=== PATIENT | male | born 1990 | race American Indian/Alaskan Native ===

== ENCOUNTER 2020-08-25 18:09 | Emergency (ER) | payer SELFPAY ==
--- NOTE | 2020-08-25 18:21 | Event Note ---
ED Screening Note ED Screening Note: 30 yo bipolar schizo male comes to er p not drinking for 48 hours feeling funny. Temors on arrival VS ok no cp no sob no sz states if he doesnt take his psych meds he hears voices took meds today lives with family he drinks etoh daily; and has for 5 years This initial assessment/diagnostic orders/clinical plan/treatment(s) is/are subject to change based on patients health status, clinical progression and re- assessment by fellow clinical providers in the ED. Further treatment and workup at subsequent clinical providers discretion. Patient/guardian urged not to elope from the ED as their condition may be serious if not clinically assessed and managed. Initial orders include: javy BRUNER
[2020-08-25 19:09] LABS: Amphetamine Screen,Urine Negative; Benzodiazepines Screen,Urine Negative; Cocaine Screen,Urine Negative; Methadone Screen,Urine Negative; Opiate Screen,Urine Negative
[2020-08-25 19:11] LABS: Hemoglobin 14.5 gm/dl (11.8-15.2); Mean Corpuscular HGB Conc 34 % (32-34); Mean Corpuscular Volume 88 fl (84-94); Platelet Count 230 K/mm3 (140-440); Red Blood Count 4.89 M/mm3 (3.65-5.03)
[2020-08-25 19:25] LABS: Cannabinoid Screen,Urine Positive
[2020-08-25 19:26] LABS: Alanine Aminotransferase 14 units/L (7-56); Albumin 4.8 g/dL (3.9-5); BUN/Creatinine Ratio 14; Blood Urea Nitrogen 14 mg/dL (9-20); Calcium 9.6 mg/dL (8.4-10.2); Hemolysis Index 10
[2020-08-25 19:29] LABS: Bilirubin,Urine MOD (Negative); Blood,Urine NEG (Negative); Color,Urine Yellow (Yellow); Mucus,Urine 2+ /HPF; WBC,Urine < 1.0 /HPF (0.0-6.0)
[2020-08-25] MEDS ORDERED: LIDOCAINE VISCOUS 2% 15 ML ORAL LIQD PO ONE (20:02)
[2020-08-25] MEDS ORDERED: ALUM-MAG HYDROXIDE-SIMETHICONE 200-200-20MG/5ML ORAL LIQD 30 ML PO ONE (20:02)
--- NOTE | 2020-08-25 20:08 | Emergency Department Report ---
ED Abdominal Pain HPI - General Chief Complaint: Medical Clearance Stated Complaint: WANTS BLOOD WORK Time Seen by Provider: 08/25/20 18:17 Source: patient Mode of arrival: Ambulatory Limitations: No Limitations - History of Present Illness Initial Comments: 30-year-old male with history of bipolar disorder, schizophrenia, acid reflux, presents to ED with abdominal pain. Patient reports onset of abdominal pain 2 days ago. Patient reports it feels like his acid reflux. Patient states he normally drinks daily but he stopped x1 day. Patient reports since stopping, his abdominal pain has improved. He denies any nausea, vomiting. Patient states he just wanted to come and get some blood work checked to make sure he was okay. MD Complaint: abdominal pain -: days(s) (2) Location: epigastric Radiation: none Migration to: no migration Severity: mild Quality: burning Consistency: intermittent Improves With: other (Not drinking alcohol) Worsens With: other (Drinking alcohol) Associated Symptoms: denies: nausea, vomiting, fever, hematemesis, hematochezia, melena - Related Data Previous Rx's Medication Instructions Recorded Last Taken Type Pantoprazole [Protonix] 40 mg PO QDAY #30 tablet 08/25/20 Unknown Rx Allergies Allergy/AdvReac Type Severity Reaction Status Date / Time No Known Allergies Allergy Verified 08/25/20 18:12 ED Review of Systems ROS: Stated complaint: WANTS BLOOD WORK Other details as noted in HPI Comment: All other systems reviewed and negative Gastrointestinal: abdominal pain. denies: nausea, vomiting, hematemesis, hematochezia ED Past Medical Hx - Past Medical History Hx Psychiatric Treatment: Yes (BIPOLAR /SCHIZOPHERNIA) - Social History Smoking Status: Never Smoker Substance Use Type: Alcohol - Medications Home Medications: Home Medications Medication Instructions Recorded Confirmed Last Taken Type Pantoprazole [Protonix] 40 mg PO QDAY #30 tablet 08/25/20 Unknown Rx ED Physical Exam - General Limitations: No Limitations General appearance: alert, in no apparent distress - Head Head exam: Present: atraumatic, normocephalic - Eye Eye exam: Present: normal appearance, EOMI - ENT ENT exam: Present: mucous membranes moist - Neck Neck exam: Present: normal inspection - Respiratory Respiratory exam: Present: normal lung sounds bilaterally. Absent: respiratory distress - Cardiovascular Cardiovascular Exam: Present: regular rate, normal rhythm - GI/Abdominal GI/Abdominal exam: Present: soft. Absent: distended, tenderness - Extremities Exam Extremities exam: Present: normal inspection - Neurological Exam Neurological exam: Present: alert, oriented X3 - Psychiatric Psychiatric exam: Present: normal affect, normal mood - Skin Skin exam: Present: warm, dry, intact, normal color ED Course Vital Signs 08/25/20 08/25/20 18:15 20:30 Temperature 97.9 F 98.1 F Pulse Rate 78 71 Respiratory 20 16 Rate Blood Pressure 118/76 115/62 [Right] O2 Sat by Pulse 98 99 Oximetry ED Medical Decision Making - Lab Data Result diagrams: 08/25/20 18:41 08/25/20 18:41 - Medical Decision Making 30-year-old male with history of bipolar disorder, schizophrenia, acid reflux, presents to ED with abdominal pain. Patient reports onset of abdominal pain 2 days ago. Patient reports it feels like his acid reflux. Patient states he normally drinks daily but he stopped x1 day. Patient reports since stopping, his abdominal pain has improved. He denies any nausea, vomiting. Patient states he just wanted to come and get some blood work checked to make sure he was okay. Labs are unremarkable. Vital signs are stable. Patient given GI cocktail here in the ED and is feeling much better. Patient will be discharged at this time with prescription for Protonix. He has been advised to reduce his alcohol intake. Outpatient follow-up advised. Return precautions given. - Differential Diagnosis Gastritis, pancreatitis, anemia Critical care attestation.: If time is entered above; I have spent that time in minutes in the direct care of this critically ill patient, excluding procedure time. ED Disposition Clinical Impression: Gastritis Disposition: DC-01 TO HOME OR SELFCARE Is pt being admited?: No Condition: Stable Instructions: Gastritis, Adult, [id number], Heartburn, [id number] Prescriptions: Pantoprazole [Protonix] 40 mg PO QDAY #30 tablet Referrals: CARMELLA BRAND MD [Primary Care Provider] - 3-5 Days [facility] [Provider Group] - 3-5 Days [facility] [Provider Group] - 3-5 Days Time of Disposition: 20:08
[2020-08-25 20:32] VITALS: BP 115/62
[2020-08-25 20:40] LABS: Ictotest,Urine Positive (Negative)
[2020-08-25 22:49] LABS: RBC Morphology Normal; Total Cells Counted 100
[2020-08-25 22:50] LABS: Large Platelets Rare; Platelet Estimate Consistent w Auto
== END 2020-08-25 20:36 | disposition home or self-care (01) ==
LOC: ED 18:09
DX: K29.70 Gastritis, unspecified, without bleeding (principal); F25.0 Schizoaffective disorder, bipolar type; Z79.899 Other long term (current) drug therapy
CPT/HCPCS: 36415; 80053; 80307; 80320; 81001; 82550; 83690; 85007; 85025; 99283; G0480

== ENCOUNTER 2020-09-07 20:43 | Emergency (ER) | payer SELFPAY ==
[2020-09-07 21:04] VITALS: BP 105/64
[2020-09-07] MEDS ORDERED: cephALEXin 500 MG CAP PO ONE (22:19)
[2020-09-07] MEDS ORDERED: traMADol 50 MG TAB PO ONE (22:19)
[2020-09-07] MEDS ORDERED: IBUPROFEN 600 MG TAB PO ONE (22:19)
--- NOTE | 2020-09-07 22:28 | Emergency Department Report ---
ED Fall HPI - General Chief Complaint: Extremity Injury, Lower Stated Complaint: FALL/BODY PAIN Source: patient Mode of arrival: Ambulatory - History of Present Illness Initial Comments: Patient is a 30-year-old -[place] male with a history of schizophrenia, bipolar disorder, anxiety and depression who presents to the ED with complaint of acute onset persistent left hip pain, left thigh pain and right hand and finger pains due to abrasions after he tripped on a manhole and fell down hitting his right hand and left hip about 1 week ago. Patient states that the pain has been persistent despite taking [id number] pain medications, and confirmed that he has been taking Tylenol 600 mg for pain. Patient states that he is unsure of his tetanus vaccination status. Patient denies head or neck injuries, loss of consciousness, numbness and tingling or weakness of upper and lower extremities bilaterally, low back pain, chest pain, shortness of breath, abdominal pain, testicular pain, hematuria, change in vision, loss of consciousness, seizures, syncope change in vision or neck pain. MD Complaint: fall, other (Left hip pain, right hand pain and finger swelling with multiple abrasions) -: Sudden, days(s) (6) Fall From: standing, other (tripped and fell on an open Man-hole) When Fall Occurred: # days [employer]PER[employer] (6) Fall Witnessed: yes, by bystander Place Fall Occurred: street Loss of Consciousness: none Prolonged Down Time?: no Symptoms Prior to Fall: none Location: other (Right hand and left hip and thigh pain) Location - Extremities: Left: Thigh (left hip and thigh pains), Right: Hand (painful swollen ulcerated abrasion wounds) Severity: severe Severity scale (0 -10): 7 Quality: sharp, aching Context: tripped/slipped Associated Symptoms: denies. denies: numbness, weakness, chest paint, shortness of breath, abdominal pain, hematuria, lightheaded, vertigo, confusion, other - Related Data Previous Rx's Medication Instructions Recorded Last Taken Type Pantoprazole [Protonix] 40 mg PO QDAY #30 tablet 08/25/20 Unknown Rx Acetaminophen/Codeine [Tylenol 1 tab PO Q6H PRN #10 tab 09/07/20 Unknown Rx /Codeine # 3 tab] Ibuprofen [Motrin] 600 mg PO Q8H PRN #24 tablet 09/07/20 Unknown Rx Sulfamethoxazole/Trimethoprim 1 each PO Q12H #20 tablet 09/07/20 Unknown Rx [Bactrim DS TAB] Allergies Allergy/AdvReac Type Severity Reaction Status Date / Time No Known Allergies Allergy Verified 08/25/20 18:12 ED Review of Systems ROS: Stated complaint: FALL/BODY PAIN Other details as noted in HPI Constitutional: denies: chills, fever Eyes: denies: eye pain, eye discharge, vision change ENT: denies: ear pain, throat pain, dental pain Respiratory: denies: cough, shortness of breath, wheezing Cardiovascular: denies: chest pain, palpitations Endocrine: no symptoms reported Gastrointestinal: denies: abdominal pain, nausea, vomiting, diarrhea, constipation, hematemesis, melena Genitourinary: denies: urgency, dysuria Musculoskeletal: arthralgia (left hip and thigh pain; right hand and finger lacerations). denies: joint swelling, myalgia, other Skin: other (Swollen painful abrasion wounds on dorsal right hand and fingers; legft hip and thigh pain). denies: rash, lesions Neurological: denies: headache, weakness, paresthesias Psychiatric: denies: anxiety, depression Hematological/Lymphatic: denies: easy bleeding, easy bruising ED Past Medical Hx - Past Medical History Hx Psychiatric Treatment: Yes (BIPOLAR /SCHIZOPHERNIA) Additional medical history: GERD - Social History Smoking Status: Never Smoker - Medications Home Medications: Home Medications Medication Instructions Recorded Confirmed Last Taken Type Pantoprazole [Protonix] 40 mg PO QDAY #30 tablet 08/25/20 Unknown Rx Acetaminophen/Codeine [Tylenol 1 tab PO Q6H PRN #10 tab 09/07/20 Unknown Rx /Codeine # 3 tab] Ibuprofen [Motrin] 600 mg PO Q8H PRN #24 tablet 09/07/20 Unknown Rx Sulfamethoxazole/Trimethoprim 1 each PO Q12H #20 tablet 09/07/20 Unknown Rx [Bactrim DS TAB] ED Physical Exam - General Limitations: No Limitations General appearance: alert, in no apparent distress - Head Head exam: Present: atraumatic, normocephalic, normal inspection - Eye Eye exam: Present: normal appearance, PERRL, EOMI - ENT ENT exam: Present: normal exam, normal orophraynx, mucous membranes moist, TM's normal bilaterally, normal external ear exam - Neck Neck exam: Present: normal inspection, full ROM. Absent: tenderness, meningismus - Respiratory Respiratory exam: Present: normal lung sounds bilaterally. Absent: respiratory distress, wheezes, rales, rhonchi, chest wall tenderness, accessory muscle use, prolonged expiratory - Cardiovascular Cardiovascular Exam: Present: regular rate, normal rhythm, normal heart sounds. Absent: systolic murmur, diastolic murmur, rubs, gallop - GI/Abdominal GI/Abdominal exam: Present: soft, normal bowel sounds. Absent: distended, tenderness, guarding, rebound, hyperactive bowel sounds, organomegaly - Extremities Exam Extremities exam: Present: normal inspection, tenderness (Palpable right hand and finger tenderness due to ulcerated open abrasion wounds with swelling; palpable left hip tenderness with multiple abrasion to the left lateral thigh), normal capillary refill, joint swelling. Absent: pedal edema - Back Exam Back exam: Present: normal inspection, full ROM. Absent: tenderness, CVA tenderness (R), CVA tenderness (L), muscle spasm, paraspinal tenderness, vertebral tenderness - Neurological Exam Neurological exam: Present: alert, oriented X3, CN II-XII intact, normal gait, reflexes normal - Psychiatric Psychiatric exam: Present: normal affect, normal mood - Skin Skin exam: Present: warm, dry, intact, normal color. Absent: rash ED Course Vital Signs 09/07/20 21:02 Temperature 97.5 F L Pulse Rate 95 H Respiratory 16 Rate Blood Pressure 105/64 O2 Sat by Pulse 96 Oximetry ED Medical Decision Making - Medical Decision Making This is a 30-year-old -[place] male with a history of schizophrenia, bipolar disorder, anxiety and depression who presents to the ED with complaint of acute onset persistent left hip pain, left thigh pain and right hand and finger pains due to abrasions after he tripped on a manhole and fell down hitting his right hand and left hip about 1 week ago. Patient states that the pain has been persistent despite taking [id number] pain medications, and confirmed that he has been taking Tylenol 600 mg for pain. Patient states that he is unsure of his tetanus vaccination status. In the ED, patient is alert and oriented x3 and is not in any distress. Patient was treated in the ED for pain. There are multiple abrasions on the dorsal right ring and middle fingers were cleaned thoroughly and dressed appropriately. Patient also received booster tetanus vaccinations in the ED. On reevaluation, patient's pain is well controlled medications. - Differential Diagnosis Abrasions; hand contusion; hip contusion; muscle strain; muscle spasm Critical care attestation.: If time is entered above; I have spent that time in minutes in the direct care of this critically ill patient, excluding procedure time. ED Disposition Clinical Impression: Contusion of right hand including fingers Qualifiers: Encounter type: initial encounter Qualified Code(s): S60.221A - Contusion of right hand, initial encounter Infected abrasion of right hand Qualifiers: Encounter type: initial encounter Qualified Code(s): S60.511A - Abrasion of right hand, initial encounter Contusion of left hip and thigh Qualifiers: Encounter type: initial encounter Qualified Code(s): S70.02XA - Contusion of left hip, initial encounter Disposition: DC- TO HOME OR SELFCARE Is pt being admited?: No Does the pt Need Aspirin: No Condition: Stable Instructions: Hand Contusion, [id number]-[id number], Hand Contusion, Abrasion, [id number]-[id number], Quadriceps Contusion, Xjvw-[id number] Additional Instructions: Take medication with food, drink plenty of fluids and follow-up with your primary care physician in 7 to 10 days for reevaluation. Return to the ED immediately if symptoms get worse. Prescriptions: Sulfamethoxazole/Trimethoprim [Bactrim DS TAB] 1 each PO Q12H #20 tablet Ibuprofen [Motrin] 600 mg PO Q8H PRN #24 tablet PRN Reason: Pain Acetaminophen/Codeine [Tylenol /Codeine # 3 tab] 1 tab PO Q6H PRN #10 tab PRN Reason: Pain , Severe (7-10) Referrals: [facility] [Provider Group] - 7-10 days Time of Disposition: 22:36 Print Language: MACEDONIAN
[2020-09-07] MEDS ORDERED: DIPHtheria,PERTUSSIS(ACELL),TETANUS VACCINE/PF 0.5 ML VIAL IM ONE (22:39)
== END 2020-09-07 22:50 | disposition home or self-care (01) ==
LOC: ED 20:43
DX: S60.221A Contusion of right hand, initial encounter (principal); S70.02XA Contusion of left hip, initial encounter; S60.511A Abrasion of right hand, initial encounter; K21.9 Gastro-esophageal reflux disease without esophagitis; F25.0 Schizoaffective disorder, bipolar type; Z79.899 Other long term (current) drug therapy; W18.30XA Fall on same level, unspecified, initial encounter; Y92.410 Unspecified street and highway as the place of occurrence of the external cause; Y93.89 Activity, other specified; Y99.8 Other external cause status
CPT/HCPCS: 90471; 90715; 99282

== ENCOUNTER 2020-09-12 21:43 | Emergency (ER) | payer SELFPAY ==
[2020-09-12 22:38] VITALS: BP 124/71
[2020-09-12] MEDS ORDERED: HYDROcodone/ACETAMINOPHEN 10-325MG TAB PO ONE (23:33)
--- NOTE | 2020-09-13 00:06 | Emergency Department Report ---
ED Fall HPI - General Chief Complaint: Wound/Laceration Stated Complaint: LECERATION OVER LEFT EYE Time Seen by Provider: 09/12/20 23:30 Source: patient Mode of arrival: Ambulatory - History of Present Illness Initial Comments: This is a 30-year-old male nontoxic, well nourished in appearance, no acute signs of distress presents to the ED with c/o of right eyebrow laceartion x 2 days. Patient stated that he was in the bathroom with slippers that are slippery and tripped and fell to the face area which caused the laceration 2 days. Stated had ? LOC. Stated has some headaches. Denies worst headache. Deneis any neck or back pains. Denies any visual changes. Denies any eye pain. Patient that is up-to-date with tetanus as of last week. Patient denies decreased sensation or range of motion. Patient stated bleeding is under control. Denies any numbness, tingling, fever, chills, nausea, vomiting, chest pain, shortness of breath, headache or stiff neck. Patient denies any allergies to significant past medical history. PMH includes schizophrenia, bipolar disord er, anxiety and depression. MD Complaint: fall -: days(s) (2) Fall From: standing Fall Witnessed: no Place Fall Occurred: home Loss of Consciousness: unsure Prolonged Down Time?: no Symptoms Prior to Fall: none Location: face Severity: mild Severity scale (0 -10): 8 Quality: aching Context: tripped/slipped Associated Symptoms: headache. denies: neck pain, numbness, weakness, chest paint, shortness of breath, abdominal pain, hematuria, unable to walk, lightheaded, vertigo, confusion - Related Data Previous Rx's Medication Instructions Recorded Last Taken Type Pantoprazole [Protonix] 40 mg PO QDAY #30 tablet 08/25/20 Unknown Rx Acetaminophen/Codeine [Tylenol 1 tab PO Q6H PRN #10 tab 09/07/20 Unknown Rx /Codeine # 3 tab] Ibuprofen [Motrin] 600 mg PO Q8H PRN #24 tablet 09/07/20 Unknown Rx Sulfamethoxazole/Trimethoprim 1 each PO Q12H #20 tablet 09/07/20 Unknown Rx [Bactrim DS TAB] Sulfamethoxazole/Trimethoprim 1 each PO BID #14 tablet 09/13/20 Unknown Rx [Bactrim DS TAB] Allergies Allergy/AdvReac Type Severity Reaction Status Date / Time No Known Allergies Allergy Verified 09/12/20 22:35 ED Review of Systems ROS: Stated complaint: LECERATION OVER LEFT EYE Other details as noted in HPI Comment: All other systems reviewed and negative Constitutional: denies: chills, fever Eyes: denies: eye pain, eye discharge, vision change ENT: denies: ear pain, throat pain Respiratory: denies: cough, shortness of breath, wheezing Cardiovascular: denies: chest pain, palpitations Endocrine: no symptoms reported Gastrointestinal: denies: abdominal pain, nausea, diarrhea Genitourinary: denies: urgency, dysuria Musculoskeletal: denies: back pain, joint swelling, arthralgia Skin: denies: rash, lesions Neurological: headache. denies: weakness, paresthesias Psychiatric: denies: anxiety, depression Hematological/Lymphatic: denies: easy bleeding, easy bruising ED Past Medical Hx - Past Medical History Previous Medical History?: No Hx Psychiatric Treatment: Yes (BIPOLAR /SCHIZOPHERNIA) Additional medical history: GERD - Surgical History Past Surgical History?: No - Social History Smoking Status: Never Smoker Substance Use Type: None - Medications Home Medications: Home Medications Medication Instructions Recorded Confirmed Last Taken Type Pantoprazole [Protonix] 40 mg PO QDAY #30 tablet 08/25/20 Unknown Rx Acetaminophen/Codeine [Tylenol 1 tab PO Q6H PRN #10 tab 09/07/20 Unknown Rx /Codeine # 3 tab] Ibuprofen [Motrin] 600 mg PO Q8H PRN #24 tablet 09/07/20 Unknown Rx Sulfamethoxazole/Trimethoprim 1 each PO Q12H #20 tablet 09/07/20 Unknown Rx [Bactrim DS TAB] Sulfamethoxazole/Trimethoprim 1 each PO BID #14 tablet 09/13/20 Unknown Rx [Bactrim DS TAB] ED Physical Exam - General Limitations: No Limitations General appearance: alert, in no apparent distress - Head Head exam: Present: normocephalic - Expanded Head Exam Expanded Head exam: Present: abrasion, other (right periorbital ecchymosis) 1 - 1 cm superficial abrasion ? laceration with crusting noted due to 2 days. No open lac noted on exam. No bleeding noted. - Eye Eye exam: Present: normal appearance, PERRL, EOMI, periorbital tenderness. Absent: scleral icterus, conjunctival injection, nystagmus, periorbital swelling - ENT ENT exam: Present: normal exam, normal orophraynx - Neck Neck exam: Present: normal inspection, full ROM. Absent: tenderness, meningismus, lymphadenopathy - Respiratory Respiratory exam: Absent: respiratory distress - Cardiovascular Cardiovascular Exam: Present: regular rate - Extremities Exam Extremities exam: Present: normal inspection, full ROM, normal capillary refill. Absent: tenderness, joint swelling - Back Exam Back exam: Present: normal inspection, full ROM, paraspinal tenderness (cervical paraspinal). Absent: tenderness, CVA tenderness (R), CVA tenderness (L), muscle spasm, vertebral tenderness, rash noted - Neurological Exam Neurological exam: Present: alert, oriented X3, normal gait - Expanded Neurological Exam Expanded Patient oriented to: Present: person, place, time Cranial nerves: EOM's Intact: Normal, Facial Sensation: Normal Cerebellar function: Finger to Nose: Normal Upper motor neuron: Pronator Drift: Normal, Sensory Extinction: Normal Motor strength exam: RUE: 5, LUE: 5, RLE: 5, LLE: 5 Best Eye Response ([place]): (4) open spontaneously Best Motor Response ([place]): (6) obeys commands Best Verbal Response ([place]as[place]ir): (5) oriented [place] Total: 15 - Psychiatric Psychiatric exam: Present: normal affect, normal mood - Skin Skin exam: Present: warm, dry, intact, normal color. Absent: rash ED Course Vital Signs 09/12/20 22:36 Temperature 98.5 F Pulse Rate 109 H Respiratory 18 Rate Blood Pressure 124/71 O2 Sat by Pulse 97 Oximetry - Reevaluation(s) Reevaluation #1: 09/13/20 00:09 Patient is speaking in full sentences with no signs of distress noted. ED Medical Decision Making - Radiology Data [facility] [address] [place] [address] Cat Scan Report Signed Patient: TERRI HILL MR#: [id number] : 1990 Acct:[id number] Age/Sex: 30 / M A DM Date: 09/12/20 Loc: ED Attending Dr: Ordering Physician: LINDEN LACY NP Date of Service: 09/12/20 Procedure(s): CT facial bones wo con Accession Number(s): [id number] cc: LINDEN LACY NP CT MAXILLOFACIAL WITHOUT CONTRAST INDICATION / CLINICAL INFORMATION: Patient had a fall, now with a facial laceration.. TECHNIQUE: All CT scans at this location are performed using CT dose reduction for ALARA by means of automated exposure control. COMPARISON: None available. FINDINGS: FACIAL BONES: No fracture or other significant abnormality. PARANASAL SINUSES: No significant abnormality. ORBITS: No significant abnormality. VISUALIZED INTRACRANIAL STRUCTURES: No significant abnormality. ADDITIONAL FINDINGS: Mild right periorbital soft tissue swelling IMPRESSION: 1. Mild right periorbital soft tissue swelling. No fracture Signer Name: Bunny Gong MD Signed: 09/13/2020 12:55 AM Workstation Name: [id number] Transcribed By: TL Dictated By: Bunny Gong MD Electronically Authenticated By: Bunny Gong MD Signed Date/Time: 09/13/2054 DD/ TD/TT: [facility] [address] [place] [address] Cat Scan Report Signed Patient: TERRI HILL MR#: [id number] : 1990 Acct:[id number] Age/Sex: 30 / M ADM Date: 09/12/20 Loc: ED Attending Dr: Ordering Physician: LINDEN LACY NP Date of Service: 09/12/20 Procedure(s): CT cervical spine wo con Accession Number(s): [id number] cc: LINDEN LACY NP CT CERVICAL SPINE WITHOUT CONTRAST INDICATION: Patient had a fall, now with a facial laceration.. TECHNIQUE: All CT scans at this location are performed using CT dose reduction for ALARA by means of automated exposure control. Axial CT images were obtained through the cervical spine. Sagittal and coronal reformatted images were produced. COMPARISON: None available. FINDINGS: Fracture: None. Subluxation: None. Spinal canal: No significant compromise. Disc spaces: Normal. Facet joints: Normal. Paraspinal soft tissues: No soft tissue swelling. Normal. Additional findings: None. Lung apices: Normal. IMPRESSION: 1. No acute findings. Signer Name: Bunny Gong MD Signed: 09/13/2020 12:56 AM Workstation Name: [id number] Transcribed By: TL Dictated By: Bunny Gong MD Electronically Authenticated By: Bunny Gong MD Signed Date/Time: 09/13/2055 DD/ TD/TT: [facility] [address] [place] [id number] Cat Scan Report Signed Patient: TERRI HILL MR#: [id number] : 1990 Acct:[id number] Age/Sex: 30 / M ADM Date: 09/12/20 Loc: ED Attending Dr: Ordering Physician: LINDEN LACY NP Date of Service: 09/12/20 Procedure(s): CT head/brain wo con Accession Number(s): [id number] cc: LINDEN LACY NP CT HEAD WITHOUT CONTRAST INDICATION / CLINICAL INFORMATION: Patient had a fall, now with a facial laceration.. TECHNIQUE: All CT scans at this location are performed using CT dose reduction for ALARA by means of automated exposure control. COMPARISON: None available. FINDINGS: HEMORRHAGE: None. EXTRA-AXIAL SPACES: Normal in size and morphology for the patient's age. VENTRICULAR SYSTEM: Normal in size and morphology for the patient's age. CEREBRAL PARENCHYMA: No significant abnormality. No acute territorial infarct. MIDLINE SHIFT OR HERNIATION: None. CEREBELLUM / BRAINSTEM: No significant abnormality. ORBITS: Normal as visualized. SOFT TISSUES of HEAD: No significant abnormality. CALVARIUM: No significant abnormality. PARANASAL SINUSES / MASTOID AIR CELLS: Normal as visualized. ADDITIONAL FINDINGS: None. IMPRESSION: 1. No acute intracranial abnormality. Signer Name: Bunny Gong MD Signed: 09/13/2020 12:53 AM Workstation Name: [id number] Transcribed By: TL Dictated By: Bunny Gong MD Electronically Authenticated By: Bunny Gong MD Signed Date/Time: 09/13/2052 DD/ TD/TT: - Medical Decision Making This is a 30-year-old male that presents with fall Patient is stable and was examined by me. Lac >24 hours with dry crusting area. No sutureing performed due to this. Patient was educated on proper wound care. Patient is discharged with Bactrim. Patient is notified of the CT results with no questions noted by the patient. Patient was instructed to refer to Follow-up with a primary care doctor in 3-5 days or if symptoms worsen and continue return to emergency room as soon as possible. At time of discharge, the patient does not seem toxic or ill in appearance. No acute signs of distress noted. Patient agrees to discharge treatment plan of care. No further questions noted by the patient. Critical care attestation.: If time is entered above; I have spent that time in minutes in the direct care of this critically ill patient, excluding procedure time. ED Disposition Clinical Impression: Fall Qualifiers: Encounter type: initial encounter Qualified Code(s): W19.XXXA - Unspecified fall, initial encounter Facial contusion Qualifiers: Encounter type: initial encounter Qualified Code(s): S00.83XA - Contusion of other part of head, initial encounter Abrasion of right eyebrow Qualifiers: Encounter type: initial encounter Qualified Code(s): S00.211A - Abrasion of rig ht eyelid and periocular area, initial encounter Periorbital ecchymosis of right eye Qualifiers: Encounter type: initial encounter Qualified Code(s): S00.11XA - Contusion of right eyelid and periocular area, initial encounter Disposition: DC- TO HOME OR SELFCARE Is pt being admited?: No Does the pt Need Aspirin: No Condition: Stable Instructions: Contusion, [id number], Abrasion Additional Instructions: Follow-up with a primary care doctor in 3-5 days or if symptoms worsen and continue return to emergency room as soon as possible. Prescriptions: Sulfamethoxazole/Trimethoprim [Bactrim DS TAB] 1 each PO BID #14 tablet Referrals: PRIMARY MD CARY [Primary Care Provider] - 3-5 Days RODO BREWER MD [Staff Physician] - 3-5 Days Time of Disposition: 01:12
--- NOTE | 2020-09-13 00:57 | Cat Scan Report ---
CT HEAD WITHOUT CONTRAST INDICATION / CLINICAL INFORMATION: Patient had a fall, now with a facial laceration.. TECHNIQUE: All CT scans at this location are performed using CT dose reduction for ALARA by means of automated e xposure control. COMPARISON: None available. FINDINGS: HEMORRHAGE: None. EXTRA-AXIAL SPACES: Normal in size and morphology for the patient's age. VENTRICULAR SYSTEM: Normal in size and morphology for the patient's age. CEREBRAL PARENCHYMA: No significant abnormality. No acute territorial infarct. MIDLINE SHIFT OR HERNIATION: None. CEREBELLUM / BRAINSTEM: No significant abnormality. ORBITS: Normal as visualized. SOFT TISSUES of HEAD: No significant abnormality. CALVARIUM: No significant abnormality. PARANASAL SINUSES / MASTOID AIR CELLS: Normal as visualized. ADDITIONAL FINDINGS: None. IMPRESSION: 1. No acute intracranial abnormality. Signer Name: Bunny Gong MD Signed: 09/13/2020 12:53 AM Workstation Name: [id number]
--- NOTE | 2020-09-13 00:59 | Cat Scan Report ---
CT MAXILLOFACIAL WITHOUT CONTRAST INDICATION / CLINICAL INFORMATION: Patient had a fall, now with a facial laceration.. TECHNIQUE: All CT scans at this location are performed using CT dose reduction for ALARA by means of automated e xposure control. COMPARISON: None available. FINDINGS: FACIAL BONES: No fracture or other significant abnormality. PARANASAL SINUSES: No significant abnormality. ORBITS: No significant abnormality. VISUALIZED INTRACRANIAL STRUCTURES: No significant abnormality. ADDITIONAL FINDINGS: Mild right periorbital soft tissue swelling IMPRESSION: 1. Mild right periorbital soft tissue swelling. No fracture Signer Name: Bunny Gong MD Signed: 09/13/2020 12:55 AM Workstation Name: [id number]
--- NOTE | 2020-09-13 01:01 | Cat Scan Report ---
CT CERVICAL SPINE WITHOUT CONTRAST INDICATION: Patient had a fall, now with a facial laceration.. TECHNIQUE: All CT scans at this location are performed using CT dose reduction for ALARA by means of automated e xposure control. Axial CT images were obtained through the cervical spine. Sagittal and coronal reformatted images we re produced. COMPARISON: None available. FINDINGS: Fracture: None. Subluxation: None. Spinal canal: No significant compromise. Disc spaces: Normal. Facet joints: Normal. Paraspinal soft tissues: No soft tissue swelling. Normal. Additional findings: None. Lung apices: Normal. IMPRESSION: 1. No acute findings. Signer Name: Bunny Gong MD Signed: 09/13/2020 12:56 AM Workstation Name: [id number]
== END 2020-09-13 01:21 | disposition home or self-care (01) ==
LOC: ED 21:43
DX: S00.83XA Contusion of other part of head, initial encounter (principal); S00.11XA Contusion of right eyelid and periocular area, initial encounter; S00.211A Abrasion of right eyelid and periocular area, initial encounter; K21.9 Gastro-esophageal reflux disease without esophagitis; F25.0 Schizoaffective disorder, bipolar type; Z79.899 Other long term (current) drug therapy; W18.30XA Fall on same level, unspecified, initial encounter; Y93.89 Activity, other specified; Y92.009 Unspecified place in unspecified non-institutional (private) residence as the place of occurrence of the external cause; Y99.8 Other external cause status
CPT/HCPCS: 70450; 70486; 72125

== ENCOUNTER 2021-09-09 20:25 | Emergency (ER) | payer MEDICARE ==
[2021-09-09] MEDS ORDERED: SODIUM CHLORIDE 0.9% 1000 ML 1,000 ML IV ONE ×2 (20:57)
[2021-09-09] MEDS ORDERED: NALOXONE 0.4 MG/1 ML INJ IV ONE (20:57)
[2021-09-09 21:23] LABS: Eosinophils # (Auto) 0.1 K/mm3 (0.0-0.4); Eosinophils % (Auto) 2.6 % (0.0-4.3); Lymphocytes # (Auto) 1.5 K/mm3 (1.2-5.4); Monocytes # (Auto) 0.5 K/mm3 (0.0-0.8)
[2021-09-09 21:28] LABS: Basophils % (Auto) 0.8 % (0.0-1.8); Hemoglobin 13.2 gm/dl (11.8-15.2); Lymphocytes % (Auto) 42.4 % (13.4-35.0); Mean Corpuscular HGB Conc 32 % (32-34); Mean Corpuscular Volume 88 fl (84-94); Monocytes % (Auto) 14.9 % (0.0-7.3); Platelet Count 273 K/mm3 (140-440); Red Blood Count 4.66 M/mm3 (3.65-5.03); Red Cell Distribution Width 14.4 % (13.2-15.2)
[2021-09-09 21:37] LABS: Alanine Aminotransferase 12 units/L (7-56); Albumin 4.6 g/dL (3.9-5); Blood Urea Nitrogen 7 mg/dL (9-20); Hemolysis Index 13
[2021-09-09 21:39] LABS: BUN/Creatinine Ratio 10
--- NOTE | 2021-09-09 21:54 | Cat Scan Report ---
CT CERVICAL SPINE WITHOUT CONTRAST INDICATION / CLINICAL INFORMATION: altered mental status. TECHNIQUE: Axial CT images were obtained through the cervical spine. Sagittal and coronal reformatted images were produced. All CT scans at this location are performed using CT dose reduction for ALARA by means of automated exposure control. COMPARISON: None available. FINDINGS: VERTEBRAE: No significant abnormality. ALIGNMENT: No significant abnormality. DISC SPACES: No significant abnormality. FACET JOINTS: No significant abnormality. CRANIOCERVICAL JUNCTION:No significant abnormality. SPINAL CANAL: No significant abnormality. PARASPINAL SOFT TISSUES: No significant abnormality. ADDITIONAL FINDINGS: None. LUNG APICES: No significant abnormality of visualized lungs. IMPRESSION: 1. No significant abnormality. Signer Name: Fabrizio Dobbins DO Signed: 09/09/2021 9:50 PM Workstation Name: [id number]
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
--- NOTE | 2021-09-09 23:37 | Emergency Department Report ---
<DAVID PERSON - Last Filed: 09/10/21 04:47> ED Alcohol HPI - General Chief Complaint: Altered Mental Status Stated Complaint: AMS Time Seen by Provider: 09/09/21 20:56 - Related Data Previous Rx's Medication Instructions Recorded Last Taken Type Pantoprazole [Protonix] 40 mg PO QDAY #30 tablet 08/25/20 Unknown Rx Acetaminophen/Codeine [Tylenol 1 tab PO Q6H PRN #10 tab 09/07/20 Unknown Rx /Codeine # 3 tab] Ibuprofen [Motrin] 600 mg PO Q8H PRN #24 tablet 09/07/20 Unknown Rx Sulfamethoxazole/Trimethoprim 1 each PO Q12H #20 tablet 09/07/20 Unknown Rx [Bactrim DS TAB] Sulfamethoxazole/Trimethoprim 1 each PO BID #14 tablet 09/13/20 Unknown Rx [Bactrim DS TAB] Allergies Allergy/AdvReac Type Severity Reaction Status Date / Time No Known Allergies Allergy Verified 09/12/20 22:35 ED Past Medical Hx - Medications Home Medications: Home Medications Medication Instructions Recorded Confirmed Last Taken Type Pantoprazole [Protonix] 40 mg PO QDAY #30 tablet 08/25/20 Unknown Rx Acetaminophen/Codeine [Tylenol 1 tab PO Q6H PRN #10 tab 09/07/20 Unknown Rx /Codeine # 3 tab] Ibuprofen [Motrin] 600 mg PO Q8H PRN #24 tablet 09/07/20 Unknown Rx Sulfamethoxazole/Trimethoprim 1 each PO Q12H #20 tablet 09/07/20 Unknown Rx [Bactrim DS TAB] Sulfamethoxazole/Trimethoprim 1 each PO BID #14 tablet 09/13/20 Unknown Rx [Bactrim DS TAB] ED Course - Reevaluation(s) Reevaluation #1: 09/10/21 05:16 Patient reassessed. He is easily arousable and alert with steady gait. Patient states he has a place to live right now and plans to go home via bus. No signs of tremor ED Medical Decision Making - Lab Data Result diagrams: 09/09/21 21:04 09/09/21 21:04 - Medical Decision Making 31-year-old male presented to the hospital acute alcohol intoxication. Patient had unremarkable imaging studies. Patient has steady gait, is alert and clinically sober. Patient will be discharged ED Disposition Clinical Impression: Acute alcohol intoxication Disposition: HOME / SELF CARE / HOMELESS Is pt being admited?: No Does the pt Need Aspirin: No Condition: Stable Instructions: Alcohol Intoxication Referrals: RODO BREWER MD [Primary Care Provider] - 3-5 Days [facility] [Provider Group] - 3-5 Days Time of Disposition: 05:17 <MARIANNE SIFUENTES - Last Filed: 09/10/21 19:01> ED Alcohol HPI - General Source: patient, old records reviewed Mode of arrival: Ambulatory Limitations: Altered Mental Status - History of Present Illness Initial Comments: Chief complaint: Altered mental status HPI: 31-year-old male with unknown past medical history who presents with altered mental status. Patient walked in to the waiting room. He was unable to give any further information. Patient is now lethargic but protecting airway. Strong odor of alcohol on breath. According to electronic medical record patient has previously documented history of bipolar disorder and schizophrenia. Complaint: alcohol intoxication Last Drink: unknown Associated Symptoms: other (Patient is altered) Treatments Prior to Arrival: other (Patient walked to triage ) ED Review of Systems ROS: Stated complaint: AMS Other details as noted in HPI Comment: Unobtainable due to pts medical conditions (Patient is altered and intoxicated) ED Past Medical Hx - Past Medical History Previous Medical History?: Yes Hx Psychiatric Treatment: Yes (BIPOLAR /SCHIZOPHERNIA) Additional medical history: GERD - Surgical History Additional Surgical History: Unable to obtain - Social History Smoking Status: Never Smoker Substance Use Type: None ED Physical Exam - General Limitations: Altered Mental Status General appearance: appears intoxicated, lethargic, other (Moves purposely, protecting airway,) - Head Head exam: Present: atraumatic - Eye Eye exam: Present: normal appearance, PERRL, scleral icterus, conjunctival injection - ENT ENT exam: Present: mucous membranes moist - Neck Neck exam: Present: normal inspection, full ROM. Absent: tenderness, meningismus - Respiratory Respiratory exam: Present: normal lung sounds bilaterally. Absent: respiratory distress, wheezes, rales, rhonchi - GI/Abdominal GI/Abdominal exam: Present: soft. Absent: distended, tenderness, guarding, rebound - Extremities Exam Extremities exam: Present: normal inspection - Back Exam Back exam: Present: normal inspection - Neurological Exam Neurological exam: Present: altered, other (Nonverbal) - Psychiatric Psychiatric exam: Present: flat affect - Skin Skin exam: Present: warm, dry, intact, normal color ED Course Vital Signs 09/09/21 09/09/21 09/09/21 20:34 21:03 23:13 Temperature 98.6 F Pulse Rate 88 79 81 Respiratory 16 19 18 Rate Blood Pressure 124/64 Blood Pressure 99/71 97/68 [Right] O2 Sat by Pulse 96 97 99 Oximetry 09/10/21 09/10/21 09/10/21 00:31 01:48 02:05 Temperature Pulse Rate 81 84 84 Respiratory 12 14 14 Rate Blood Pressure 104/65 Blood Pressure 99/65 104/65 [Right] O2 Sat by Pulse 100 100 100 Oximetry 09/10/21 05:29 Temperature Pulse Rate 93 H Respiratory 16 Rate Blood Pressure Blood Pressure 111/77 [Right] O2 Sat by Pulse 95 Oximetry ED Medical Decision Making - Lab Data Result diagrams: 09/09/21 21:04 09/09/21 21:04 Laboratory Results - last 24 hr 09/09/21 09/09/21 09/09/21 21:04 21:04 21:04 WBC 3.5 L RBC 4.66 Hgb 13.2 Hct 41.0 MCV 88 MCH 28 MCHC 32 RDW 14.4 Plt Count 273 Lymph % (Auto) 42.4 H [place] % (Auto) 14.9 H Eos % (Auto) 2.6 Baso % (Auto) 0.8 Lymph # (Auto) 1.5 [place] # (Auto) 0.5 Eos # (Auto) 0.1 Baso # (Auto) 0.0 Seg Neutrophils % 39.3 L Seg Neutrophils # 1.4 L Sodium 137 Potassium 3.5 L Chloride 99.0 Carbon Dioxide 23 Anion Gap 19 BUN 7 L Creatinine 0.7 L Estimated GFR > 60 BUN/Creatinine Ratio 10 Glucose 111 H POC Glucose Calcium 9.0 Total Bilirubin 0.60 AST 27 ALT 12 Alkaline Phosphatase 59 Total Protein 7.6 Albumin 4.6 Albumin/Globulin Ratio 1.5 Plasma/Serum Alcohol 0.35 H 09/09/21 21:08 WBC RBC Hgb Hct MCV MCH MCHC RDW Plt Count Lymph % (Auto) [place] % (Auto) Eos % (Auto) Baso % (Auto) Lymph # (Auto) [place] # (Auto) Eos # (Auto) Baso # (Auto) Seg Neutrophils % Seg Neutrophils # Sodium Potassium Chloride Carbon Dioxide Anion Gap BUN Creatinine Estimated GFR BUN/Creatinine Ratio Glucose POC Glucose 104 Calcium Total Bilirubin AST ALT Alkaline Phosphatase Total Protein Albumin Albumin/Globulin Ratio Plasma/Serum Alcohol - Medical Decision Making This is a [id number] male with history of bipolar disorder and schizophrenia presents with acute alcohol intoxication. CT scans of head and cervical spine were obtained to rule out head and neck injury with limited information. Patient received 2 L normal saline. He has been observed on monitor. No evidence of airway compromise during 3-hour observation. Critical care attestation.: If time is entered above; I have spent that time in minutes in the direct care of this critically ill patient, excluding procedure time. ED Disposition Is pt being admited?: No Does the pt Need Aspirin: No
[2021-09-10 00:32] LABS: Bacteria,Urine 1+ /HPF (Negative); Bilirubin,Urine NEG (Negative); Blood,Urine NEG (Negative); Color,Urine Straw (Yellow); Mucus,Urine FEW /HPF; Protein,Urine <15 mg/dL mg/dL (Negative); RBC,Urine < 1.0 /HPF (0.0-6.0); Urobilinogen,Urine < 2.0 mg/dL (<2.0); WBC,Urine < 1.0 /HPF (0.0-6.0)
[2021-09-10 00:48] LABS: Amphetamine Screen,Urine PRESUMPTIVE NEGATIVE; Benzodiazepines Screen,Urine PRESUMPTIVE NEGATIVE; Cannabinoid Screen,Urine PRESUMPTIVE NEGATIVE; Cocaine Screen,Urine PRESUMPTIVE NEGATIVE; Methadone Screen,Urine PRESUMPTIVE NEGATIVE; Opiate Screen,Urine PRESUMPTIVE NEGATIVE
[2021-09-10 05:29] VITALS: BP 111/77
== END 2021-09-10 05:55 | disposition home or self-care (01) ==
LOC: ED 20:25
DX: F10.220 Alcohol dependence with intoxication, uncomplicated (principal)
CPT/HCPCS: 36415; 70450; 72125; 80053; 80307; 81001; 82962; 85025; 87086; 96361; 96374; 99284; J2310; J7030; 80320; Q0162; G0480

== ENCOUNTER 2022-01-23 19:24 | Emergency (ER) | payer MEDICARE ==
--- NOTE | 2022-01-23 22:36 | Emergency Department Report ---
<DAVID PERSON - Last Filed: 01/24/22 05:26> ED Alcohol HPI - General Stated Complaint: ETOH Time Seen by Provider: 01/23/22 21:59 Source: patient, old records reviewed Mode of arrival: Stretcher Limitations: Altered Mental Status - History of Present Illness Initial Comments: 31-year-old male with a past medical history of alcohol abuse, schizophrenia, and bipolar disorder with brought in for acute alcohol intoxication. Patient was sleeping in the [facility] parking lot. Patient is sleeping and arousable to deep palpation. No visible signs of trauma. History of previous visits for the same - Related Data Previous Rx's Medication Instructions Recorded Last Taken Type Pantoprazole [Protonix] 40 mg PO QDAY #30 tablet 08/25/20 Unknown Rx Acetaminophen/Codeine [Tylenol 1 tab PO Q6H PRN #10 tab 09/07/20 Unknown Rx /Codeine # 3 tab] Ibuprofen [Motrin] 600 mg PO Q8H PRN #24 tablet 09/07/20 Unknown Rx Sulfamethoxazole/Trimethoprim 1 each PO Q12H #20 tablet 09/07/20 Unknown Rx [Bactrim DS TAB] Sulfamethoxazole/Trimethoprim 1 each PO BID #14 tablet 09/13/20 Unknown Rx [Bactrim DS TAB] Allergies Allergy/AdvReac Type Severity Reaction Status Date / Time No Known Allergies Allergy Verified 01/24/22 10:08 ED Review of Systems Comment: Unobtainable due to pts medical conditions (Due to acute intoxication) ED Past Medical Hx - Past Medical History Hx Psychiatric Treatment: Yes (BIPOLAR /SCHIZOPHERNIA) Additional medical history: GERD - Surgical History Additional Surgical History: Unable to obtain - Social History Smoking Status: Never Smoker Substance Use Type: None - Medications Home Medications: Home Medications Medication Instructions Recorded Confirmed Last Taken Type Pantoprazole [Protonix] 40 mg PO QDAY #30 tablet 08/25/20 Unknown Rx Acetaminophen/Codeine [Tylenol 1 tab PO Q6H PRN #10 tab 09/07/20 Unknown Rx /Codeine # 3 tab] Ibuprofen [Motrin] 600 mg PO Q8H PRN #24 tablet 09/07/20 Unknown Rx Sulfamethoxazole/Trimethoprim 1 each PO Q12H #20 tablet 09/07/20 Unknown Rx [Bactrim DS TAB] Sulfamethoxazole/Trimethoprim 1 each PO BID #14 tablet 09/13/20 Unknown Rx [Bactrim DS TAB] ED Physical Exam - Other Other exam information: General: No acute distress, disheveled Head: Atraumatic Eyes: normal appearance ENT: Moist mucous membranes Neck: Normal appearance, no midline tenderness Chest: Clear to auscultation bilaterally CV: Regular rate and rhythm Abdomen: Soft, normal bowel sounds, nontender, nondistended, no rebound or guarding Back: Normal inspection Extremity: Normal inspection, full range of motion Neuro: Sleeping, moans to deep stimulation, moves all extremities equally ED Course - Reevaluation(s) Reevaluation #1: 01/23/22 22:36 Suspected acute alcohol intoxication. We will continue to observe and reassess. Labs ordered As per written trigae note initial vital signs included temperature 98.2, BP 110/75, pulse 85, satting 95% on room air. Height 6 foot and 140 pounds. Im awaiting placement of these values on medical record 01/24/22 05:26 During ED stay patient intermittently get up and walk to the bathroom. Denies physical complaints ED Medical Decision Making - Lab Data Result diagrams: 01/23/22 22:39 01/23/22 22:39 Lab Results 01/23/22 01/23/22 01/23/22 Range/Units 22:39 22:39 22:39 WBC 3.1 L (4.5-11.0) K/mm3 RBC 4.55 (3.65-5.03) M/mm3 Hgb 13.8 (11.8-15.2) gm/dl Hct 40.9 (35.5-45.6) % MCV 90 (84-94) fl MCH 30 (28-32) pg MCHC 34 (32-34) % RDW 14.3 (13.2-15.2) % Plt Count 217 (140-440) K/mm3 Lymph % (Auto) 23.4 (13.4-35.0) % Traill % (Auto) 6.2 (0.0-7.3) % Eos % (Auto) 1.2 (0.0-4.3) % Baso % (Auto) 0.5 (0.0-1.8) % Lymph # (Auto) 0.7 L (1.2-5.4) K/mm3 Traill # (Auto) 0.2 (0.0-0.8) K/mm3 Eos # (Auto) 0.0 (0.0-0.4) K/mm3 Baso # (Auto) 0.0 (0.0-0.1) K/mm3 Seg Neutrophils % 68.7 (40.0-70.0) % Seg Neutrophils # 2.1 (1.8-7.7) K/mm3 Sodium 144 (137-145) mmol/L Potassium 3.9 (3.6-5.0) mmol/L Chloride 101.4 (98-107) mmol/L Carbon Dioxide 25 (22-30) mmol/L Anion Gap 22 mmol/L BUN 12 (9-20) mg/dL Creatinine 0.8 (0.8-1.3) mg/dL Estimated GFR > 60 ml/min BUN/Creatinine Ratio 15 % Glucose 149 H (75-100) mg/dL Calcium 9.0 (8.4-10.2) mg/dL Magnesium 1.80 (1.7-2.3) mg/dL Total Bilirubin 0.40 (0.1-1.2) mg/dL AST 52 H (5-40) units/L ALT 23 (7-56) units/L Alkaline Phosphatase 72 (35-129) units/L Total Protein 7.4 (6.3-8.2) g/dL Albumin 4.9 (3.9-5) g/dL Albumin/Globulin Ratio 2.0 % Plasma/Serum Alcohol 0.34 H (0-0.07) % - Medical Decision Making 31-year-old male chronic alcoholic presents to the hospital in the past for same presents to the hospital acute alcohol intoxication after sleeping outside on the ground at [facility]. No signs of trauma. No physical complaints. Patient will be discharged in the daytime once clinically sober with stable gait Critical Care Time: No ED Disposition Clinical Impression: Acute alcohol intoxication Disposition: 01 HOME / SELF CARE / HOMELESS Is pt being admited?: No Does the pt Need Aspirin: No Condition: Stable Instructions: Alcohol Abuse and Dependence Information, Adult Additional Instructions: Professional and Agency Contacts To help [facility] (14/01) [place] Crisis Line: Suicide Prevention Line: Crisis Text Line: Text ``START to 205803 Emergency: 911 SUBSTANCE ABUSE PROGRAMS: Sober Living [place]: Location: [place], [place] [employer] Address: [address] [place] [address] [facility] Recovery: Address: [address] [place] [id number] [facility]: Address: [address] [place] [address] [facility] Community: Address: [address] [place] [address] Referrals: RODO BREWER MD [Primary Care Provider] - 3-5 Days [facility] [Provider Group] - 3-5 Days <LEX HUMPHREY - Last Filed: 01/24/22 10:27> ED Review of Systems ROS: Stated complaint: ETOH Other details as noted in HPI ED Course Vital Signs 01/24/22 01/24/22 01/24/22 05:31 05:44 08:36 Temperature 98.2 F 98 F Pulse Rate 85 87 Respiratory 18 14 Rate Blood Pressure 110/75 103/68 [Left] O2 Sat by Pulse 99 98 99 Oximetry 01/24/22 10:07 Temperature 98.3 F Pulse Rate 77 Respiratory 16 Rate Blood Pressure 110/83 [Left] O2 Sat by Pulse 98 Oximetry ED Medical Decision Making - Lab Data Result diagrams: 01/23/22 22:39 01/23/22 22:39 Critical care attestation.: If time is entered above; I have spent that time in minutes in the direct care of this critically ill patient, excluding procedure time. ED Disposition Is pt being admited?: No Does the pt Need Aspirin: No
[2022-01-23 23:06] LABS: Basophils % (Auto) 0.5 % (0.0-1.8); Eosinophils % (Auto) 1.2 % (0.0-4.3); Hematocrit 40.9 % (35.5-45.6); Hemoglobin 13.8 gm/dl (11.8-15.2); Lymphocytes # (Auto) 0.7 K/mm3 (1.2-5.4); Lymphocytes % (Auto) 23.4 % (13.4-35.0); Mean Corpuscular HGB Conc 34 % (32-34); Mean Corpuscular Volume 90 fl (84-94); Monocytes # (Auto) 0.2 K/mm3 (0.0-0.8); Monocytes % (Auto) 6.2 % (0.0-7.3); Platelet Count 217 K/mm3 (140-440); Red Blood Count 4.55 M/mm3 (3.65-5.03); Red Cell Distribution Width 14.3 % (13.2-15.2)
[2022-01-23 23:13] LABS: Alanine Aminotransferase 23 units/L (7-56); Albumin 4.9 g/dL (3.9-5); BUN/Creatinine Ratio 15; Blood Urea Nitrogen 12 mg/dL (9-20); Hemolysis Index 9
[2022-01-24 10:08] VITALS: BP 110/83
== END 2022-01-24 11:05 | disposition home or self-care (01) ==
LOC: ED 19:24
DX: F10.129 Alcohol abuse with intoxication, unspecified (principal); F31.9 Bipolar disorder, unspecified; F20.9 Schizophrenia, unspecified
CPT/HCPCS: 36415; 80053; 80320; 83735; 85025; 99284; G0480